=== PATIENT | female | born 1965 | race Caucasian/White ===

== ENCOUNTER 2016-12-09 12:08 | Inpatient (IN) | payer OTHER ==
[~2016-12-09] VITALS: Ht 160 cm; Wt 69.4 kg
[2016-12-09 14:36] LABS: RED BLOOD COUNT 3.75 M/UL (4.00-5.10); WHITE BLOOD COUNT 7.5 K/UL (4.5-11.0)
[2016-12-09 14:51] LABS: BUN/CREATININE RATIO 17 (0-10)
[2016-12-09 14:59] LABS: HEMOGLOBIN 6.9 gm/dl (12.3-15.3)
[2016-12-09] MEDS ORDERED: LORCET PLUS 7.1 EACH PO (22:19)
[2016-12-09] MEDS ORDERED: ZOCOR20 MG PO (22:19)
[2016-12-09] MEDS ORDERED: PROZAC20 MG PO (22:19)
[2016-12-09] MEDS ORDERED: NEURONTIN400 MG PO (22:20)
[2016-12-09] MEDS ORDERED: IBUPROFEN800 MG PO (22:20)
[2016-12-10 02:24] LABS: HEMOGLOBIN 8.5 gm/dl (12.3-15.3)
[2016-12-10 05:44] LABS: HEMOGLOBIN 8.8 gm/dl (12.3-15.3); WHITE BLOOD COUNT 5.8 K/UL (4.5-11.0)
[2016-12-10 05:45] LABS: RED BLOOD COUNT 4.22 M/UL (4.00-5.10)
[2016-12-10 06:02] LABS: BUN/CREATININE RATIO 14 (0-10)
[2016-12-11 04:32] LABS: RED BLOOD COUNT 4.29 M/UL (4.00-5.10); WHITE BLOOD COUNT 6.9 K/UL (4.5-11.0)
[2016-12-11] MEDS ORDERED: TYLENOL 325MG325 MG PO (13:54)
[2016-12-11] MEDS ORDERED: PROTONIX40 MG PO (13:55)
[2016-12-11] MEDS ORDERED: IRON325 M1 PO (13:56)
== END 2016-12-11 19:20 | disposition home or self-care (01) | DRG 812 ==
LOC: ER1 12:08 → ZEROF 16:10 → MED SURG 4 16:10
PROVIDERS: Internal Medicine Gastroenterology; Preventive Medicine Occupational Medicine; ADMIT Internal Medicine Infectious Disease
PROC: 30253H1 (ICD-10-PCS; 2016-12-09)
PROC: 0DB68ZX Excision of Stomach, Via Natural or Artificial Opening Endoscopic, Diagnostic (ICD-10-PCS; principal; 2016-12-11 13:15)
PROC: 0DJD8ZZ Inspection of Lower Intestinal Tract, Via Natural or Artificial Opening Endoscopic (ICD-10-PCS; 2016-12-11 13:15)
DX: D50.9 Iron deficiency anemia, unspecified (principal); K31.5 Obstruction of duodenum; K26.7 Chronic duodenal ulcer without hemorrhage or perforation; K25.9 Gastric ulcer, unspecified as acute or chronic, without hemorrhage or perforation; K64.8 Other hemorrhoids; Z88.5 Allergy status to narcotic agent; Z88.2 Allergy status to sulfonamides; Z82.49 Family history of ischemic heart disease and other diseases of the circulatory system; Z83.3 Family history of diabetes mellitus; D50.8 Other iron deficiency anemias; T39.395A Adverse effect of other nonsteroidal anti-inflammatory drugs [NSAID], initial encounter
CPT/HCPCS: 36415; 36430; 80048; 82607; 82728; 82746; 83540; 83550; 83735; 85014; 85018; 85025; 85027; 86850; 86900; 86901; 86920; 99284; J1756; J2405; J7040; J7050; P9016

== ENCOUNTER → 2017-01-12 | Outpatient (CLI) | payer OTHER ==
[~2017-01-12] MED LIST: IBUPROFEN800 MG PO; IRON325 M1 PO; LORCET PLUS 7.1 EACH PO; NEURONTIN400 MG PO; PROTONIX40 MG PO; PROZAC20 MG PO; TYLENOL 325MG325 MG PO; ZOCOR20 MG PO
[2017-01-12 12:59] LABS: HEMOGLOBIN 8.2 gm/dl (12.3-15.3); RED BLOOD COUNT 3.44 M/UL (4.00-5.10); WHITE BLOOD COUNT 6.4 K/UL (4.5-11.0)
== END ==
LOC: LAB 11:54
PROVIDERS: Nurse Practitioner Family
DX: D50.9 Iron deficiency anemia, unspecified (principal)
CPT/HCPCS: 36415; 82728; 83540; 83550; 85025

== ENCOUNTER 2021-02-07 20:03 | Emergency (ER) | payer SELFPAY ==
[~2021-02-07 20:03] MED LIST changes: +NORCO 7.5-3251 EACH PO
[2021-02-07 23:38] LABS: HEMOGLOBIN 8.8 gm/dl (12.3-15.3); RED BLOOD COUNT 4.8 M/UL (4.00-5.10); WHITE BLOOD COUNT 9.7 K/UL (4.5-11.0)
[2021-02-08] LABS: BUN/CREATININE RATIO 11 (0-10)
[2021-02-08] MEDS ORDERED: FERROUS GLUCON324 M1 PO (00:30)
[2021-02-08] MEDS ORDERED: ZOFRAN ODT 4 MG4 MG SL (00:30)
== END 2021-02-08 00:32 | disposition home or self-care (01) ==
LOC: ER1 20:03
PROVIDERS: Physician Assistant
DX: D64.9 Anemia, unspecified (principal); R53.83 Other fatigue; R00.1 Bradycardia, unspecified
CPT/HCPCS: 80053; 85025; 99283